=== PATIENT | male | born 1970 ===

== ENCOUNTER 2021-04-06 09:09 | Outpatient (REF) | payer SELFPAY ==
--- NOTE | ~2021-04-06 | XR_ITS ---
EXAMINATION: XR HIP, LEFT CLINICAL INFORMATION: Sacroiliitis COMPARISON: None TECHNIQUE: Two views of the left hip. FINDINGS: Bones and soft tissues are normal. No fracture. Alignment is anatomic. Hip joint space is maintained. XR/XR hip LT min 2V IMPRESSION: Normal left hip.
--- NOTE | ~2021-04-06 | XR_ITS ---
EXAMINATION: XR WRIST, LEFT CLINICAL INFORMATION: Pain COMPARISON: None TECHNIQUE: PA, lateral, and oblique views of the left wrist. FINDINGS: Bone alignment is normal. No fracture or dislocation is seen. There is ulnar minus variance. Joint spaces are normal. Soft tissues are normal. XR/XR wrist LT min 3V IMPRESSION: Ulnar minus variance otherwise unremarkable exam.
--- NOTE | ~2021-04-06 | XR_ITS ---
EXAMINATION: XR ELBOW, LEFT CLINICAL INFORMATION: Epicondylitis COMPARISON: None TECHNIQUE: AP, lateral, and oblique views of the left elbow. FINDINGS: Bone alignment is normal. No fracture or dislocation is seen. Joint spaces are normal. There is no joint effusion. There is a small osteophyte at the triceps tendon insertion to the olecranon. Soft tissues are otherwise normal. XR/XR elbow LT min 3V IMPRESSION: Small olecranon osteophyte otherwise unremarkable exam.
--- NOTE | ~2021-04-06 | XR_ITS ---
EXAMINATION: XR LUMBOSACRAL SPINE WITH OBLIQUES CLINICAL INFORMATION: Sacroiliitis COMPARISON: None TECHNIQUE: AP, both oblique, and lateral views of the lumbar spine. Lateral view of the lumbosacral junction. FINDINGS: There is a transitional vertebral body segment or 6 lumbar-type vertebral bodies. Bone alignment is normal. No fracture or dislocation is seen. Disc spaces are normal. Facet joints are normal. No pars defect is seen. Paraspinal soft tissues are normal XR/XR lumbar spine 4V min IMPRESSION: Unremarkable exam.
== END 2021-04-06 09:10 | disposition home or self-care (01) ==
LOC: HO.XRAY 09:09
PROVIDERS: PCP Family Medicine; Visit Provider Family Medicine
DX: M46.1 Sacroiliitis, not elsewhere classified (principal); M77.10 Lateral epicondylitis, unspecified elbow
CPT/HCPCS: 72110; 73080; 73110; 73502

== ENCOUNTER 2021-04-23 07:25 | Outpatient (REF) | payer OTHER, SELFPAY | END 2021-04-23 07:26 | disposition home or self-care (01) | LOC: HO.HOSX 07:25 | PROVIDERS: Visit Provider Physician Assistant | DX: Z13.89 Encounter for screening for other disorder (principal) ==

== ENCOUNTER 2023-02-17 09:55 | Outpatient (REF) | payer MEDICAID, SELFPAY ==
[2023-02-17 14:29] LABS: MANUAL DIFF FLAG NO
[2023-02-17 14:35] LABS: Basophils Percent Auto 0.8 % (0-2); Eosinophils Absolute Auto 0.1 X10*3/uL (0.0-0.4); Eosinophils Percent Auto 2.1 % (0-4); Hematocrit 43.9 % (42.0-52.0); Hemoglobin 14.7 g/dl (14.0-18.0); Imm Gran Abs Auto 0.01 X10*3/uL (0.00-0.03); Imm Gran Pct Auto 0.3 % (0.0-0.4); Lymphocytes Absolute Auto 1.5 X10*3/uL (1.2-4.9); Mean Corpuscular HGB Conc 33.5 g/dl (31.0-36.0); Mean Corpuscular Hemoglobin 29.2 pg (27.0-33.0); Mean Corpuscular Volume 87.3 fL (80.0-98.0); Mean Platelet Volume 12.2 fL (9.4-12.4); Monocytes Absolute Auto 0.4 X10*3/uL (0.1-1.2); Neutrophils Absolute Auto 1.9 x10*3/uL (2.0-8.3); Neutrophils Percent Auto 48.8 % (45-73); Platelet Count 200 X10*3/uL (160-400); Red Blood Count 5.03 X10*6/uL (4.60-5.80); Red Cell Distribution Width 12.6 % (11.0-16.0); White Blood Count 3.9 X10*3/uL (4.8-10.8)
[2023-02-17 15:01] LABS: Estimated Average Glucose 114 mg/dL; Hemoglobin A1c % 5.6 % (<6.0)
[2023-02-17 15:59] LABS: Alanine Aminotransferase 42 U/L (0-40); Anion Gap 9 (12-20); Aspartate Amino Transferase 30 U/L (5-37); Bilirubin Total 0.6 mg/dL (0.0-1.0); Blood Urea Nitrogen 15 mg/dL (9-16); Calcium 9.4 mg/dL (8.4-10.2); Carbon Dioxide 25 mmol/L (22-29); Chloride 109 mmol/L (96-108); Estimated Glomerular Filt Rate > 60; Glucose Fasting 123 mg/dL (60-99); Sodium 139 mmol/L (135-145)
[2023-02-17 16:00] LABS: Albumin Level 4.2 g/dL (3.5-5.0); Alkaline Phosphatase 81 U/L (39-117); Cholesterol 222 mg/dL (<200); HDL Cholesterol 43 mg/dL (>40); LDL Cholesterol Calculated 152 mg/dL (<100); Total Protein 7.7 g/dL (6.5-8.0); Triglycerides 138 mg/dL (<150)
[2023-02-17 16:19] LABS: TSH reflex Free T4 1.71 uIU/mL (0.32-4.0)
[2023-02-19 20:15] LABS: TS Negative Control Passed; TS Panel A 0; TS Panel B 0; TS Positive Control Passed; TSpotTB Negative (Negative)
== END 2023-02-17 09:56 | disposition home or self-care (01) ==
LOC: HO.CHCLDS 09:55
PROVIDERS: Visit Provider Family Medicine
DX: Z11.1 Encounter for screening for respiratory tuberculosis (principal); E66.09 Other obesity due to excess calories; Z68.36 Body mass index [BMI] 36.0-36.9, adult; R76.11 Nonspecific reaction to tuberculin skin test without active tuberculosis
CPT/HCPCS: 36415; 80053; 80061; 83036; 84443; 85025; 86481

== ENCOUNTER 2023-02-26 09:26 | Outpatient (REF) | payer MEDICAID, SELFPAY ==
[2023-02-26 14:58] LABS: Alanine Aminotransferase 62 U/L (0-40); Albumin Level 4.2 g/dL (3.5-5.0); Alkaline Phosphatase 75 U/L (39-117); Anion Gap 14 (12-20); Aspartate Amino Transferase 45 U/L (5-37); Bilirubin Total 0.8 mg/dL (0.0-1.0); Blood Urea Nitrogen 18 mg/dL (9-16); Calcium 9.2 mg/dL (8.4-10.2); Carbon Dioxide 23 mmol/L (22-29); Chloride 106 mmol/L (96-108); Estimated Glomerular Filt Rate > 60; Glucose Fasting 108 mg/dL (60-99); Sodium 139 mmol/L (135-145); Total Protein 7.6 g/dL (6.5-8.0)
== END 2023-02-26 09:27 | disposition home or self-care (01) ==
LOC: HO.CHCLDS 09:26
PROVIDERS: Visit Provider Family Medicine
DX: R74.01 Elevation of levels of liver transaminase levels (principal)
CPT/HCPCS: 36415; 80053

== ENCOUNTER 2023-03-12 11:21 | Outpatient (REF) | payer MEDICAID, SELFPAY ==
--- NOTE | ~2023-03-12 | US_ITS ---
EXAMINATION: US ABDOMEN LIMITED CLINICAL INFORMATION: Persistent transaminitis. COMPARISON: None available. TECHNIQUE: Real-time imaging of the right upper quadrant abdominal viscera. Limited visualization due to bowel gas. FINDINGS: PANCREAS: Poorly visualized. LIVER: Increased parenchymal heterogeneity and echogenicity which could be associated with hepatic steatosis or hepatocellular disease and substantially limits visualization. GALLBLADDER: No gallstones. No gallbladder wall thickening. COMMON BILE DUCT: Normal in caliber measuring 0.53 cm in diameter. RIGHT KIDNEY: No hydronephrosis. No renal calculi. Renal cortical thickness is normal. Limited visualization. The kidney measures 13.2 cm in maximum dimension. FREE FLUID: None. US/US abdomen limited IMPRESSION: Increased parenchymal heterogeneity and echogenicity which could be associated with hepatic steatosis or hepatocellular disease and substantially limits visualization.
== END 2023-03-12 11:22 | disposition home or self-care (01) ==
LOC: HO.HMGCX 11:21
PROVIDERS: PCP Family Medicine; Visit Provider Family Medicine
DX: R74.01 Elevation of levels of liver transaminase levels (principal)
CPT/HCPCS: 76705

== ENCOUNTER 2023-11-16 10:50 | Inpatient (IN) | payer MEDICAID, SELFPAY ==
--- NOTE | ~2023-11-16 | XR_ITS ---
EXAMINATION: XR HAND, RIGHT CLINICAL INFORMATION: Thumb injury with swelling. COMPARISON: None available. TECHNIQUE: PA, lateral, and oblique views of the right hand. FINDINGS: Bones have normal alignment within the hand and wrist. An arrow placed on the PA view of the hand indicates that the injury was at the interphalangeal joint of the thumb. Soft tissues are swollen at the interphalangeal joint of the thumb. Joint spaces of the thumb are maintained. No radiopaque foreign body or soft tissue gas. A very small lucency in cortical bone of the 1st metacarpal head could represent an old subchondral cyst or perhaps sequela of prior trauma. There is no indication on the views obtained that any injury occurred in this specific area of the thumb. Also, there is no radiographic evidence of a soft tissue laceration. Mild narrowing of joint space and small osteophytes at multiple interphalangeal joints of the 2nd - 5th digits (i.e., mild osteoarthrosis). XR/XR hand RT min 3V IMPRESSION: * Soft tissues are swollen adjacent to the interphalangeal joint of the thumb. However, no acute fracture or malalignment in this location. No radiopaque foreign body. 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
--- NOTE | 2023-11-16 11:23 | ED_ITS ---
HPI - Extremity Problem General Chief complaint: Extremity Injury, Upper Stated complaint: thumb inj at work Time Seen by Provider: 11/16/23 12:50 History of Present Illness ED Provider: Vladislav Moreira PA-C HPI Narrative: 53 yold male with pmh of HTN presents to the ED for right thumb pain and swelling. patient cut his finger at work on a grinder outside diameter on then last night started notice some redness and pain in his morning has swelling and redness of the thumb with decreased ability to flex or extend the thumb. Patient states no fever or chills. Related Data Home Medications ?Medication ?Instructions ?Recorded ?Confirmed diclofenac potassium 50 mg tablet 50 mg TID 11/16/23 11/16/23 gabapentin 600 mg tablet 600 mg BEDTIME 11/16/23 11/16/23 losartan 50 mg tablet 50 mg DAILY 11/16/23 11/16/23 rosuvastatin 20 mg tablet 20 mg DAILY 11/16/23 11/16/23 Allergies Allergy/AdvReac Type Severity Reaction Status Date / Time No Known Allergies Allergy Verified 11/16/23 11:25 Review of Systems 2 Review of Systems: right thumb pain redness and swelling Yes all other systems are reviewed and are negative PMFSH Social History Social History Household Members: Family Housing: House Do you presently have visiting nurse or other home services: No Patient Tobacco Use Status: Never used Tobacco Use of substances other than those prescribed or required for medical reasons: No Have you been hit, kicked, punched, or otherwise hurt by someone within the past year? If so, by whom?: No Do you feel safe in your current relationship?: Yes Is there a partner from a previous relationship who is making you feel unsafe now?: No Are you made to feel afraid or neglected: No Advance Directives: No Advance Directives Information Provided: No Do you have a plan to hurt others: No Plan Recently lost weight without trying: No How much weight loss: Not applicable Eating poorly because of decreased appetite: No Nutrition screen score: 0 Nutrition Risks: No Nutritional Risk Poor oral hygiene: No Physical Exam 2 Vital Signs: Vital Signs: Last Vital Signs Temp 97.7 F 11/16/23 21:51 Pulse 95 11/16/23 21:51 Resp 18 11/16/23 21:51 BP 152/72 H 11/16/23 21:51 Pulse Ox 97 11/16/23 21:51 O2 Del Method Room Air 11/16/23 21:51 BMI result Body Mass Index 37.2 Const: General: cooperative, healthy appearing, comfortable, no acute distress, well developed, alert, awake and Physically active O rientation/consciousness: oriented to person, oriented to place, oriented to time and patient oriented x3 HEENT: Head: Yes normal to inspection, Yes No palpable skull fracture present and Yes normocephalic Eyes: General: appearance normal, both eyes and all related structures Neck: Neck: Yes normal visual inspection, Yes full ROM, Yes no lymphadenopathy, Yes no meningeal signs, Yes trachea midline, Yes supple, No anterior neck swelling and No tender Chest: Chest palpation & inspection: normal inspection of the chest and normal palpation of entire chest wall Resp: Effort & Inspection: normal respiratory effort and able to speak in complete sentences Auscultation: clear to auscultation bilaterally Cardio: Jugular venous distension: no JVD Heart sounds: S1 normal heart sound present and S2 normal heart sound present GI: Inspection: Yes normal to inspection Palpation (GI): Soft to palpation, not firm, nontender, no guarding and not rigid : General: No CVA tenderness and Yes no CVA tenderness Back/Spine/Pelvis: Back: no CVA tenderness, No CVA tenderness and No back tenderness Skin: Other: infected finger General skin exam: no rashes or lesions noted and elasticity normal Neuro: General: oriented to person, oriented to place, oriented to time, patient oriented x3, gait normal, tone normal, moves all extremities, Normal light touch and pain sensation, no meningeal signs, no focal motor deficits, CN's II-XI intact bilaterally and normal sensation to monofilament Extrem: Other: Right thumb dorsal and volar swelling and tenderness with erythema. Decreased flexion and extension due to pain. THumb is beefy red. Capillary refills intact. Bedside ultrasound was done on dorsal aspect of thumb where there is swelling and negative for pus collection. Rest of extremity normal. 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 Cut right thumb with a grinder outside diameter at work on Thursday. Increased swelling, erythema, pain and decreased ROM since, 03/10 pain. Has been using 'a lot of tylenol' for pain. Yellow purulent drainage noted Plan: XRay Medications Administered Generic Name Dose Route Start Last Admin Trade Name Freq PRN Reason Stop Dose Admin Acetaminophen 650 mg 11/16/23 18:13 11/16/23 21:58 Acetaminophen 325 Mg Tablet PO 650 mg Q6H PRN Administration Pain, Mild (Pain Scale 1-3), fever or headache Ibuprofen 600 mg 11/16/23 20:18 11/16/23 20:28 Ibuprofen 600 Mg Tablet PO 600 mg Q8H PRN Administration Pain, Moderate(Pain Scale 4-6) Discontinued Medications Generic Name Dose Route Start Last Admin Trade Name Freq PRN Reason Stop Dose Admin Diphtheria/Tetanus/Acell Pertussis 0.5 ml 11/16/23 13:13 11/16/23 13:23 Diphth,Pertus(Acell),Tet Adult 0.5 Ml Syringe IM 11/16/23 13:14 0.5 ml .ONCE ONE Administration Ceftriaxone Sodium 1 gm/ 50 mls @ 100 mls/hr 11/16/23 14:23 11/16/23 15:34 Sodium Chloride IV 11/16/23 14:52 Infused ONCE ONE Infusion Vancomycin HCl 2,000 mg in 500 mls @ 250 mls/hr 11/16/23 14:23 11/16/23 17:59 Vancomycin/Ns IV 11/16/23 16:22 Infused ONCE ONE Infusion Ibuprofen 800 mg 11/16/23 13:13 11/16/23 13:23 Ibuprofen 800 Mg Tablet PO 11/16/23 13:14 800 mg ONCE ONE Administration Morphine Sulfate 4 mg 11/16/23 15:41 11/16/23 15:48 Morphine Sulfate 4 Mg/Ml Cartridge IVPUSH 11/16/23 15:42 4 mg ONCE ONE Administration Protocol Medical Decision Making Medical Decision Making MDM Narrative: 53-year-old male with infected finger after trauma at work. Patient unknown when last tetanus shot. Tdap Motrin ordered. Physical exam maybe concerning for tenosynovitis will do labs per x-ray negative osteo. ESR CRP ordered. Antibiotics ordered. We will contact Orthopedic. bedside ultrasound of dorsal aspect thumb that is swollen negative for obvious pus collection. 4:23pm: negative white blood cell count elevation. Negative ESR. Positive elevated CRP. Patient's thumb is beefy red. Case discussed with orthopedic surgeon on-call Dr. Manzo. history, physical exam, diagnostics, will discuss with orthopedic surgeon and he was sent pictures of finger. He states patient can be admitted on the hospitalist service and Dr. Persaud can evaluate the patient in the morning to see if patient does need surgery and evaluate possible tenosynovitis. he states Dr. Persaud will confirm if patient has tenosynovitis in the morning. He recommends patient continue receiving ceftriaxone. He recommends patient stay NPO in case hand surgeon Dr. Persaud will take patient to the OR. Case discussed with Dr. Allen hospitalist who is agreeable with plan. Patient is agreeable to stay overnight for admission observation and received IV antibiotics and for evaluation in the morning by hand Differential Diagnosis Differential Diagnoses: The differential diagnosis associated with the presentation includes ( Tenosynovitis, cellulitis, abscess) Admission/Observation Consideration of admission/observation: Escalation of care including admission/observation considered Consult Healthcare Provider Management of the patient was discussed with: Hospitalist (Dr. Allen) and Pipeline Dispatch Operator (Dr. Manzo Orthopedic Surgeon) Lab Data MDM Lab Attestation statement: I reviewed the patient's lab results. 11/16/23 14:34 11/16/23 14:34 Labs: Lab Results 11/16/23 Range/Units 14:34 WBC 7.9 (4.8-10.8) X10*3/uL RBC 4.97 (4.60-5.80) X10*6/uL Hgb 14.5 (14.0-18.0) g/dl Hct 43.6 (42.0-52.0) % MCV 87.7 (80.0-98.0) fL MCH 29.2 (27.0-33.0) pg MCHC 33.3 (31.0-36.0) g/dl RDW 12.8 (11.0-16.0) % Plt Count 175 (160-400) X10*3/uL MPV 11.9 (9.4-12.4) fL Immature Gran % (Auto) 0.3 (0.0-0.4) % Neut % (Auto) 74.5 H (45-73) % Lymph % (Auto) 16.0 L (20-40) % Dubois % (Auto) 8.3 (2-11) % Eos % (Auto) 0.6 (0-4) % Baso % (Auto) 0.3 (0-2) % Lymph # (Auto) 1.3 (1.2-4.9) X10*3/uL Dubois # (Auto) 0.7 (0.1-1.2) X10*3/uL Eos # (Auto) 0.1 (0.0-0.4) X10*3/uL Baso # (Auto) 0.0 (0.0-0.2) X10*3/uL Abs Immat Gran (auto) 0.02 (0.00-0.03) X10*3/uL Absolute Neuts (auto) 5.9 (2.0-8.3) x10*3/uL Absolute Nucleated RBC 0.000 (0.0-0.012) X10*3/uL Nucleated RBC % (auto) 0.0 (0.0-0.2) /100WBC ESR 6 (0-15) MM/HR Sodium 141 (135-145) mmol/L Potassium 4.5 (3.3-5.1) mmol/L Chloride 108 (96-108) mmol/L Carbon Dioxide 28 (22-29) mmol/L Anion Gap 10 L (12-20) BUN 7 L (9-16) mg/dL Creatinine 1.02 (0.5-1.4) mg/dL Estim Creat Clear Calc 102.4 Estimated GFR > 60 Random Glucose 103 (60-115) mg/dL Lactic Acid 1.2 (0.5-2.0) mmol/L Calcium 9.4 (8.4-10.2) mg/dL Total Bilirubin 0.8 (0.0-1.0) mg/dL AST 27 (5-37) U/L ALT 38 (0-40) U/L Alkaline Phosphatase 88 (39-117) U/L C-Reactive Protein 1.85 H (< or = 0.50) mg/dL Total Protein 7.9 (6.5-8.0) g/dL Albumin 4.4 (3.5-5.0) g/dL Independent Interpretation I performed an independent interpretation of an: Plain X-Ray Radiology Impression Discussion of test interpretation with radiology: I have reviewed the radiologist's reading. Independent Historian Clinical information obtained from an independent historian. History obtained from or confirmed by: Other (Patient) External Record Review External record reviewed: Other (Prior vists) Critical Care Time Critical Care Time Critical Care Time: Yes Total Critical Care Time: 60 Attestation: tenosynovitis of thumb. Contact orthopedic surgeon and hospitaltists. antiboitcs ordered. admitted Discharge Plan Discharge Clinical Impression: Tenosynovitis of thumb Patient Disposition: Admitted As Inpatient Interventions: Admission Worksheet (ED) Last Done: 11/16/23 20:44 Discharge Date/Time: 11/16/23 21:42
[2023-11-16 11:24] VITALS: BP 142/71; PULSE 65; RESP 16; TEMP 36.6; O2SAT 98; BMI 37.2
[2023-11-16] MEDS: Diphth,Pertus(ACell),Tet Adult 0.5 ML SYRINGE IM (13:23)
[2023-11-16] MEDS: Ibuprofen 800 MG TABLET PO (13:23)
[2023-11-16 13:59] VITALS: BP 150/86; PULSE 62; RESP 18; TEMP 36.6; O2SAT 100
[2023-11-16 14:42] LABS: MANUAL DIFF FLAG NO
[2023-11-16 14:43] LABS: Basophils Percent Auto 0.3 % (0-2); Eosinophils Absolute Auto 0.1 X10*3/uL (0.0-0.4); Eosinophils Percent Auto 0.6 % (0-4); Hematocrit 43.6 % (42.0-52.0); Hemoglobin 14.5 g/dl (14.0-18.0); Imm Gran Abs Auto 0.02 X10*3/uL (0.00-0.03); Imm Gran Pct Auto 0.3 % (0.0-0.4); Lymphocytes Absolute Auto 1.3 X10*3/uL (1.2-4.9); Mean Corpuscular HGB Conc 33.3 g/dl (31.0-36.0); Mean Corpuscular Hemoglobin 29.2 pg (27.0-33.0); Mean Corpuscular Volume 87.7 fL (80.0-98.0); Mean Platelet Volume 11.9 fL (9.4-12.4); Monocytes Absolute Auto 0.7 X10*3/uL (0.1-1.2); Monocytes Percent Auto 8.3 % (2-11); Neutrophils Absolute Auto 5.9 x10*3/uL (2.0-8.3); Neutrophils Percent Auto 74.5 % (45-73); Platelet Count 175 X10*3/uL (160-400); Red Blood Count 4.97 X10*6/uL (4.60-5.80); Red Cell Distribution Width 12.8 % (11.0-16.0); White Blood Count 7.9 X10*3/uL (4.8-10.8)
[2023-11-16 14:58] LABS: Lactic Acid 1.2 mmol/L (0.5-2.0)
[2023-11-16 15:02] LABS: Alanine Aminotransferase 38 U/L (0-40); Albumin Level 4.4 g/dL (3.5-5.0); Alkaline Phosphatase 88 U/L (39-117); Anion Gap 10 (12-20); Aspartate Amino Transferase 27 U/L (5-37); Bilirubin Total 0.8 mg/dL (0.0-1.0); Blood Urea Nitrogen 7 mg/dL (9-16); C Reactive Protein 1.85 mg/dL (< or = 0.50); Calcium 9.4 mg/dL (8.4-10.2); Carbon Dioxide 28 mmol/L (22-29); Chloride 108 mmol/L (96-108); Creatinine Clr Calc Pharmacy 102.4; Estimated Glomerular Filt Rate > 60; Glucose Random 103 mg/dL (60-115); Potassium 4.5 mmol/L (3.3-5.1); Sodium 141 mmol/L (135-145); Total Protein 7.9 g/dL (6.5-8.0)
[2023-11-16] MEDS: cefTRIAXone sodium 1 GM in 0.9 % Sodium Chloride 50 ML IV (15:02)
[2023-11-16] MEDS: vancomycin/NS 2,000 MG/500 ML PLAST..BAG 250 MG IV (15:34)
[2023-11-16 15:38] LABS: Erythrocyte Sedimentation Rate 6 MM/HR (0-15)
[2023-11-16] MEDS: Morphine Sulfate 4 MG/ML CARTRIDGE IVPUSH (15:48)
[2023-11-16 16:54] VITALS: BP 146/78; PULSE 64; RESP 18; TEMP 36.7; O2SAT 99
--- NOTE | 2023-11-16 17:46 | PM.IMHP ---
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 He had been covering the wound until this morning when he noticed increased swelling, redness, and reduced mobility in the thumb. He has no fever, and his WBC count is normal. In the ED, he received Vancomycin and Ceftriaxone. An X-ray shows soft tissue swelling but no fracture. Below is a picture of the affected area. Review of Systems Constitutional: Comments: no fever pain in the right thumb all other organs reviewed negative PMFSH Social History Advance Directives: No Advance Directives Information Provided: No Meds Allergies Allergy/AdvReac Type Severity Reaction Status Date / Time No Known Allergies Allergy Verified 11/16/23 11:25 Physical Exam Vital Signs and Narrative: Vital Signs: Last Vital Signs Temp 98.1 F 11/16/23 16:54 Pulse 64 11/16/23 16:54 Resp 18 11/16/23 16:54 BP 146/78 H 11/16/23 16:54 Pulse Ox 99 11/16/23 16:54 O2 Del Method Room Air 11/16/23 16:54 BMI result Body Mass Index 37.2 General: AO X 3, no acute distress Resp: CTA bilateral CVS: S1,S2,RRR GI: +BS, NT, no distention Skin: redness, swelling as shown, limited mobility possibly from pain Neuro: motor grossly intact Psych: appropriate affect Results Labs 11/16/23 14:34 11/16/23 14:34 Labs: Laboratory Results - last 24 hr 11/16/23 14:34 MCV 87.7 MCH 29.2 MCHC 33.3 RDW 12.8 Plt Count 175 MPV 11.9 Immature Gran % (Auto) 0.3 Neut % (Auto) 74.5 H Lymph % (Auto) 16.0 L Waller % (Auto) 8.3 Eos % (Auto) 0.6 Baso % (Auto) 0.3 Lymph # (Auto) 1.3 Waller # (Auto) 0.7 Eos # (Auto) 0.1 Baso # (Auto) 0.0 Abs Immat Gran (auto) 0.02 Absolute Neuts (auto) 5.9 Absolute Nucleated RBC 0.000 Nucleated RBC % (auto) 0.0 ESR 6 Anion Gap 10 L Estim Creat Clear Calc 102.4 Estimated GFR > 60 Random Glucose 103 Lactic Acid 1.2 Calcium 9.4 Total Bilirubin 0.8 AST 27 ALT 38 Alkaline Phosphatase 88 C-Reactive Protein 1.85 H Total Protein 7.9 Albumin 4.4 Imaging Radiologist's Impressions: Impressions Hand X-Ray 11/16/23 11:44 IMPRESSION: * Soft tissues are swollen adjacent to the interphalangeal joint of the thumb. However, no acute fracture or malalignment in this location. No radiopaque foreign body. 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 Assessment and Plan (1) Tenosynovitis of thumb: Status: Acute Plan 53/m m with HTN, HLD here with Right tumb injury, redness, swelling..concern for tenosynovitis -IV vancomycin -Hand surgery consult -morphine for pain HTN--resume home meds (losartan) once med rec completed HLD--statin DVT prophylaxis--low risk, ambulate inatient for IV Abx for cellulitis of thumb, tenosynovitis, risk for loss digit Quality Stroke Does the patient have a stroke diagnosis?: No VTE Prior VTE?: No VTE Risk Level:: Medical - low VTE Device Contraindication: Treatment Not Indicated VTE Drug Contraindication: Treatment Not Indicated
--- NOTE | 2023-11-16 18:31 | PHA.MEDREC ---
Pharmacy Consult ? Medication Reconciliation Pharmacy has completed the medication reconciliation.
--- NOTE | 2023-11-16 18:45 | PHA.PROG ---
Admission Date/Time: November 16, 2023 18:13 Indication: Skin & skin structure Weight in k.13 kg Adjusted body weight in Kg: [place] body weight in Kg: Obesity Dosing Indication % IBW: BMI 37.3 Serum Creatinine - Last 168 Hours 11/16/23 14:34 Creatinine 1.02 Estimated CrCl and GFR - Last 168 Hours 11/16/23 14:34 Estim Creat Clear Calc 102.4 Estimated GFR > 60 Vancomycin Loading Dose: 2000 X1 Current Vancomycin Dosing Regimen: 750 mg Q8H Vancomycin Monitoring using AUC goal of 400 - 600 range with trough as surrogate marker: 457 Date and Time for next Vancomycin Level to be drawn: 11/16 @1400 Pharmacist Comments on Vancomycin Plan: renal function stable, predicted trough 16, next trough 11/16. Vancomycin dosing will take advantage of [employer] as a clinical decision support tool that uses Bayesian modeling to calculate individual patient's pharmacokinetic parameters and forecast the patient's drug concentration time course with the target goal AUC 24 range of 400 - 600 mg/L/hr.
--- NOTE | 2023-11-16 19:12 | MHC.EDTECH ---
patient does not want to change to hospital clothes.
[2023-11-16] MEDS: Ibuprofen 600 MG TABLET PO (20:28)
--- NOTE | 2023-11-16 20:30 | PC.NURSE ---
Pt specifically requesting Motrin for pain. Provider made aware, Pt medicated per JUL.
[2023-11-16 21:51] VITALS: BP 152/72; PULSE 95; RESP 18; TEMP 36.5; O2SAT 97
[2023-11-16] MEDS: Acetaminophen 325 MG TABLET 650 MG PO (21:58)
[2023-11-16] MEDS: 0.9 % Sodium Chloride Flush 3 ML SYRINGE IVFLUSH (23:37)
[2023-11-16] MEDS: vancomycin HCL 750 MG in 0.9 % Sodium Chloride 250 ML 265 MG IV (23:37)
[2023-11-17 03:52] VITALS: BP 137/63; PULSE 68; RESP 18; TEMP 36.4; O2SAT 96
[2023-11-17 06:30] LABS: Creatinine Clr Calc Pharmacy 103.4; Estimated Glomerular Filt Rate > 60
[2023-11-17] MEDS: vancomycin HCL 750 MG in 0.9 % Sodium Chloride 250 ML 265 MG IV (07:11)
[2023-11-17] MEDS: 0.9 % Sodium Chloride Flush 3 ML SYRINGE IVFLUSH ×3 (07:11→23:21)
[2023-11-17 07:37] VITALS: BP 142/68; PULSE 63; RESP 16; TEMP 36.6; O2SAT 97
--- NOTE | 2023-11-17 07:42 | P.CONOP_ITS ---
History of Present Illness HPI Consult date: 11/17/23 Chief complaint: cellulitis of hand Narrative: 53 yo male admitted to medicine for right thumb pain and swelling. 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 He states this happened last , 11/12/23. He states the pain and redness worsened which prompted him to come to the ED for eval. On admission he was started on IV abx. He states the symptoms have improved a bit since starting abx. Review of Systems 2 Review of Systems: Yes all other systems are reviewed and are negative [facility] Social History Social History Household Members: Family Housing: House Do you presently have visiting nurse or other home services: No Patient Tobacco Use Status: Never used Tobacco Use of substances other than those prescribed or required for medical reasons: No Currently Displaying Signs/Symptoms of Drug Intoxication Withdrawal: No Have you been hit, kicked, punched, or otherwise hurt by someone within the past year? If so, by whom?: No Do you feel safe in your current relationship?: Yes Is there a partner from a previous relationship who is making you feel unsafe now?: No Are you made to feel afraid or neglected: No Advance Directives: No Advance Directives Information Provided: No Do you have a plan to hurt others: No Plan Recently lost weight without trying: No How much weight loss: Not applicable Eating poorly because of decreased appetite: No Nutrition screen score: 0 Nutrition Risks: No Nutritional Risk Poor oral hygiene: No Meds Allergies Allergy/AdvReac Type Severity Reaction Status Date / Time No Known Allergies Allergy Verified 11/16/23 11:25 Active Medications: Current Medications Acetaminophen (Acetaminophen 325 Mg Tablet) 650 mg PO Q6H PRN PRN Reason: Pain, Mild (Pain Scale 1-3), fever or headache Last Admin: 11/16/23 21:58 Dose: 650 mg Calcium Carbonate (Calcium Carbonate 750 Mg Tab.Chew) 750 mg PO Q4H PRN PRN Reason: Heartburn Vancomycin HCl 750 mg/ Sodium (Chloride) 265 mls @ 265 mls/hr IV Q8H MYRA Last Admin: 11/17/23 07:11 Dose: 265 mls/hr Ibuprofen (Ibuprofen 600 Mg Tablet) 600 mg PO Q8H PRN PRN Reason: Pain, Moderate(Pain Scale 4-6) Last Admin: 11/16/23 20:28 Dose: 600 mg Magnesium Hydroxide (Milk Of Magnesia 30 Ml Oral.Susp) 30 ml PO DAILY PRN PRN Reason: Constipation Melatonin (Melatonin 3 Mg Tablet) 6 mg PO BEDTIME PRN PRN Reason: Insomnia Morphine Sulfate (Morphine Sulfate 4 Mg/Ml Cartridge) 2 mg IVPUSH Q6H PRN; Protocol PRN Reason: Pain, Severe (Pain Scale 7-10) Pharmacy Consult (Consult Rx Vancomycin Dosing) 1 each MISCELLANE DAILY PRN PRN Reason: Consult order Sodium Chloride (0.9 % Sodium Chloride Flush 3 Ml Syringe) 3 ml IVFLUSH QSHIFT [facility] Last Admin: 11/17/23 07:11 Dose: 3 ml Home Medications ?Medication ?Instructions ?Recorded ?Confirmed ?Last Taken ?Type diclofenac potassium 50 mg tablet 50 mg TID 11/16/23 11/16/23 11/16/23 History gabapentin 600 mg tablet 600 mg BEDTIME 11/16/23 11/16/23 11/16/23 History losartan 50 mg tablet 50 mg DAILY 11/16/23 11/16/23 11/16/23 History rosuvastatin 20 mg tablet 20 mg DAILY 11/16/23 11/16/23 11/16/23 History Physical Exam 2 Vital Signs: Vital Signs: Last Vital Signs Temp 97.9 F 11/17/23 07:37 Pulse 63 11/17/23 07:37 Resp 16 11/17/23 07:37 BP 142/68 H 11/17/23 07:37 Pulse Ox 97 11/17/23 07:37 O2 Del Method Room Air 11/17/23 07:37 BMI result Body Mass Index 37.2 Const: General: cooperative, healthy appearing and comfortable Extrem: Other: Right thumb redness and swelling over the IP joint with scant serous drainage. No pain over the MCP No pain along the thenar eminence No pain or swelling within the palmar aspect of the hand or web spaces No pain along the flexor tendons Results Labs 11/16/23 14:34 11/17/23 05:30 Labs: Abnormal lab results 11/16/23 Range/Units 14:34 Neut % (Auto) 74.5 H (45-73) % Lymph % (Auto) 16.0 L (20-40) % Anion Gap 10 L (12-20) BUN 7 L (9-16) mg/dL C-Reactive Protein 1.85 H (< or = 0.50) mg/dL H & H 11/16/23 Range/Units 14:34 Hgb 14.5 (14.0-18.0) g/dl Hct 43.6 (42.0-52.0) % All other labs normal. Assessment and Plan (1) Infected abrasion of right thumb: Status: Acute Plan IV abx warm soaks with water and peroxide qid ROM Elevate No surgical intervention at this time Procedures Date of Service Date of Service: 11/17/23
--- NOTE | 2023-11-17 10:16 | P.PNIM_ITS ---
Subjective Subjective Date of Service: 11/17/23 Interval History: f/u on cellulitis of right thumb interval history: redness and movement in the right thumb is better Physical Exam 2 Vital Signs: Vital Signs: Last Vital Signs Temp 97.9 F 11/17/23 07:37 Pulse 63 11/17/23 07:37 Resp 16 11/17/23 07:37 BP 142/68 H 11/17/23 07:37 Pulse Ox 97 11/17/23 07:37 O2 Del Method Room Air 11/17/23 07:37 BMI result Body Mass Index 37.2 General: AO X 3, no acute distress Resp: CTA bilateral CVS: S1,S2,RRR GI: +BS, NT, no distention Skin: 11/16 Neuro: motor grossly intact Psych: appropriate affect Objective Data Active Medications Acetaminophen (Acetaminophen 325 Mg Tablet) 650 mg PO Q6H PRN PRN Reason: Pain, Mild (Pain Scale 1-3), fever or headache Last Admin: 11/16/23 21:58 Dose: 650 mg Documented By: LINDA Calcium Carbonate (Calcium Carbonate 750 Mg Tab.Chew) 750 mg PO Q4H PRN PRN Reason: Heartburn Vancomycin HCl 750 mg/ Sodium (Chloride) 265 mls @ 265 mls/hr IV Q8H [facility] Last Infusion: 11/17/23 08:11 Dose: Infused Documented By: GARY Ibuprofen (Ibuprofen 600 Mg Tablet) 600 mg PO Q8H PRN PRN Reason: Pain, Moderate(Pain Scale 4-6) Last Admin: 11/16/23 20:28 Dose: 600 mg Documented By: USHA Magnesium Hydroxide (Milk Of Magnesia 30 Ml Oral.Susp) 30 ml PO DAILY PRN PRN Reason: Constipation Melatonin (Melatonin 3 Mg Tablet) 6 mg PO BEDTIME PRN PRN Reason: Insomnia Morphine Sulfate (Morphine Sulfate 4 Mg/Ml Cartridge) 2 mg IVPUSH Q6H PRN; Protocol PRN Reason: Pain, Severe (Pain Scale 7-10) Pharmacy Consult (Consult Rx Vancomycin Dosing) 1 each MISCELLANE DAILY PRN PRN Reason: Consult order Sodium Chloride (0.9 % Sodium Chloride Flush 3 Ml Syringe) 3 ml IVFLUSH [facility] Last Admin: 11/17/23 07:11 Dose: 3 ml Documented By: GARY Labs 11/16/23 14:34 11/17/23 05:30 Labs: Laboratory Results - last 24 hr 11/16/23 11/17/23 14:34 05:30 MCV 87.7 MCH 29.2 MCHC 33.3 RDW 12.8 Plt Count 175 MPV 11.9 Immature Gran % (Auto) 0.3 Neut % (Auto) 74.5 H Lymph % (Auto) 16.0 L [place] % (Auto) 8.3 Eos % (Auto) 0.6 Baso % (Auto) 0.3 Lymph # (Auto) 1.3 [place] # (Auto) 0.7 Eos # (Auto) 0.1 Baso # (Auto) 0.0 Abs Immat Gran (auto) 0.02 Absolute Neuts (auto) 5.9 Absolute Nucleated RBC 0.000 Nucleated RBC % (auto) 0.0 ESR 6 Hold Purple Top SEE NOTE Anion Gap 10 L Estim Creat Clear Calc 102.4 103.4 Estimated GFR > 60 > 60 Random Glucose 103 Lactic Acid 1.2 Calcium 9.4 Total Bilirubin 0.8 AST 27 ALT 38 Alkaline Phosphatase 88 C-Reactive Protein 1.85 H Total Protein 7.9 Albumin 4.4 Assessment and Plan (1) Infected abrasion of right thumb: Status: Acute (2) Tenosynovitis of thumb: Status: Acute Plan 53/m m with HTN, HLD here with Right tumb injury, redness, swelling..concern for tenosynovitis -IV vancomycin -morphine for pain -Ortho recom IV Abx, warm soak w/ peroxide qid HTN--resume home meds (losartan) once med rec completed HLD--statin DVT prophylaxis--low risk, ambulate inatient for IV Abx for cellulitis of thumb, tenosynovitis, risk for loss digit Quality Stroke Does the patient have a stroke diagnosis?: No VTE Prior VTE?: No VTE Risk Level:: Medical - low VTE Device Contraindication: Treatment Not Indicated VTE Drug Contraindication: Treatment Not Indicated
--- NOTE | 2023-11-17 10:55 | MHC.CM.PN ---
CM MET WITH PT AT BEDSIDE. PT LIVES WITH SPOUSE, IS INDEPENDENT AND SELF EMPLOYED. +HCP PCP DR. KASPER DP: HOME , NO SERVICES ANTICIPATED. PT HAS CARE IN LOT. CM WILL CONTINUE TO FOLLOW FOR ANY CHANGE TO DC PLAN/NEEDS.
[2023-11-17] MEDS: Losartan Potassium 50 MG TABLET PO (11:43)
[2023-11-17 14:39] LABS: Vancomycin Random 8.1 mcg/mL (15-20)
[2023-11-17] MEDS: Lidocaine HCl 1 % 20 ML VIAL SUBCUT (15:18)
[2023-11-17 15:44] VITALS: BP 145/72; PULSE 91; RESP 18; TEMP 36.3; O2SAT 97
[2023-11-17] MEDS: vancomycin HCL 1,250 MG in 0.9 % Sodium Chloride 250 ML 166.67 MG IV ×2 (15:44→23:20)
[2023-11-17] MEDS: Ibuprofen 600 MG TABLET PO (15:46)
[2023-11-17 19:06] VITALS: BP 133/62; PULSE 73; RESP 18; TEMP 36.2; O2SAT 96
[2023-11-17] MEDS: Gabapentin 600 MG TABLET PO (21:18)
[2023-11-18 03:30] VITALS: BP 133/68; PULSE 67; RESP 16; TEMP 36.3; O2SAT 95
[2023-11-18 06:42] LABS: Creatinine Clr Calc Pharmacy 120.1; Estimated Glomerular Filt Rate > 60
[2023-11-18 07:03] VITALS: BP 128/61; PULSE 68; RESP 14; TEMP 36.2; O2SAT 96
[2023-11-18] MEDS: Losartan Potassium 50 MG TABLET PO (07:10)
[2023-11-18] MEDS: vancomycin HCL 1,250 MG in 0.9 % Sodium Chloride 250 ML 166.66 MG IV (07:11)
[2023-11-18] MEDS: 0.9 % Sodium Chloride Flush 3 ML SYRINGE IVFLUSH ×2 (07:14→15:48)
--- NOTE | 2023-11-18 07:26 | PM.DS ---
DS: Providers Provider Date of Service: 11/19/23 Date of admission: 11/16/23 18:13 Primary care physician: Aparna Motley MD Consults: 11/16/23 18:15 Consult to Orthopedics Routine Consulting Provider: [facility] Reason for consultation: hand injury and cellulitis 11/16/23 21:51 Consult to Wound Care Routine Reason for consultation: cellulitis to right thumb DS: Diagnosis Discharge Diagnosis (1) Infected abrasion of right thumb: Status: Acute (2) Tenosynovitis of thumb: Status: Acute DS: Summary Hospital Course Hospital Course: admission hpi Chief Complaint: Thumb injury and cellulitis A 53-year-old male with hypertension and hyperlipidemia presented with redness and swelling of his right thumb 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 He had been covering the wound until this morning when he noticed increased swelling, redness, and reduced mobility in the thumb. He has no fever, and his WBC count is normal. In the ED, he received Vancomycin and Ceftriaxone. An X-ray shows soft tissue swelling but no fracture. Below is a picture of the affected area. hosptial course: Patient was admitted for right thumb injury complicated cellulitis and tenosynovitis and was admitted for IV Abx and has signficantly improved. He was assesed by ortho with no inidcation for surgery. The erythema has nearly resolved and he has nearly intact movment in the thumb. He is advised to soak in warm water with peroxide up to 4 times a day. Will transition to oral Doxycyline at discharge and to follow up with ortho on outpatient basis Time Attestation Discharge Coordination Time (in mins): 35 Quality: Safe Use of Opioids Does Pt have an Active Cancer Diagnosis on the Problem List?: No Quality: Stroke Does the patient have a stroke diagnosis?: No Physical Exam Vital Signs: Vital Signs: Selected Entries 11/19/23 07:42 Temperature 97.5 F Pulse Rate 68 Respiratory Rate 12 Blood Pressure 123/72 Pulse Oximetry 97 Oxygen Delivery Me thod Room Air DS: Data Data Completed and Pending Labs on day of discharge: Laboratory Results - last 24 hr 11/17/23 11/18/23 13:53 06:03 Creatinine 0.87 Estim Creat Clear Calc 120.1 Estimated GFR > 60 Random Vancomycin 8.1 L Preliminary micro results at discharge 11/16/23 14:47 Blood Culture - Preliminary Blood - Venous No growth after 24 hours. 11/16/23 14:34 Blood Culture - Preliminary Blood - Venous No growth after 24 hours. Discharge Plan Discharge Anticipated Discharge Date/Time: 11/19/23 10:30 Patient Disposition: Home, Self-Care Discharge Diagnosis: Cellulitis of the thumb Referrals: Elvira Siu PA-C [Physician Bilingual Sales Assistant] - 1 Week Aparna Motley MD [Primary Care Provider] - 1 Week Discharge Medications: New doxycycline hyclate 100 mg tablet 100 mg PO BID 5 Days Qty: 10 0RF Continued losartan 50 mg tablet 50 mg DAILY gabapentin 600 mg tablet 600 mg BEDTIME diclofenac potassium 50 mg tablet 50 mg TID rosuvastatin 20 mg tablet 20 mg DAILY Discharge Orders: Discharge Order (Routine); Ordered 11/19/23 Ordered By: Murray Allen Diet: Advance to usual diet Activity on Discharge: As tolerated Stand Alone Forms: Patient Portal Discharge page Print Language: Greek Care Plan Goals: healing of infected thumb Health Concerns: infected thumb from injury Plan of Treatment: Take Doxycyline as recommended Soak finger in warm water with Peroxide 4 times a Assessment: see above
--- NOTE | 2023-11-18 07:59 | PM.PNORT ---
Subjective Subjective Date of Service: 11/18/23 Interval history: patient resting comfortably in bed performing warm water soaks reports overnight a small amount of purulent drainage began pain is managed no additional complaints Physical Exam Vital Signs: Vital Signs: Last Vital Signs Temp 97.2 F 11/18/23 07:03 Pulse 68 11/18/23 07:03 Resp 14 11/18/23 07:03 BP 128/61 11/18/23 07:03 Pulse Ox 96 11/18/23 07:03 O2 Del Method Room Air 11/18/23 07:03 BMI result Body Mass Index 37.2 Const: General: cooperative, healthy appearing and comfortable Extrem: Other: Right thumb redness and swelling over the IP joint with a small amount of purulent drainage. No pain over the MCP No pain along the thenar eminence No pain or swelling within the palmar aspect of the hand or web spaces No pain along the flexor tendons Procedures Date of Service Date of Service: 11/18/23 Progress Note: A&P Assessment and plan (1) Infected abrasion of right thumb: Status: Acute Assessment and Plan: continue warm water soaks continue abx no need for OR this am encourage gentle ROM (2) Tenosynovitis of thumb: Status: Acute Time Spent With Patient Time: Total time managing care of this patient today ____ minutes. Quality Stroke Does the patient have a stroke diagnosis?: No VTE Prior VTE?: No VTE Risk Level:: Medical - low VTE Device Contraindication: Treatment Not Indicated VTE Drug Contraindication: Treatment Not Indicated
[2023-11-18 14:16] LABS: Vancomycin Random 12.5 mcg/mL (15-20)
--- NOTE | 2023-11-18 14:25 | HE.PHANOTE ---
RE: VANCO DOSING Random came back as 12.5. Continue with dose of 1250 mg q8h, next random is scheduled for 11/18 @1400.
[2023-11-18 15:10] VITALS: BP 140/85; PULSE 89; RESP 20; TEMP 36.7; O2SAT 96
--- NOTE | 2023-11-18 15:15 | HO.PM.IMPN ---
Subjective Subjective Date of Service: 11/19/23 Interval History: f/u on cellulitis of right thumb interval history: redness and movement continue to improve Physical Exam Vital Signs: Vital Signs: Last Vital Signs Temp 97.2 F 11/18/23 07:03 Pulse 89 11/18/23 15:10 Resp 20 11/18/23 15:10 BP 140/85 H 11/18/23 15:10 Pulse Ox 96 11/18/23 15:10 O2 Del Method Room Air 11/18/23 15:10 BMI result Body Mass Index 37.2 Objective Data Active Medications Acetaminophen (Acetaminophen 325 Mg Tablet) 650 mg PO Q6H PRN PRN Reason: Pain, Mild (Pain Scale 1-3), fever or headache Last Admin: 11/16/23 21:58 Dose: 650 mg Documented By: LINDA Calcium Carbonate (Calcium Carbonate 750 Mg Tab.Chew) 750 mg PO Q4H PRN PRN Reason: Heartburn Gabapentin (Gabapentin 600 Mg Tablet) 600 mg PO BEDTIME [facility] Last Admin: 11/17/23 21:18 Dose: 600 mg Documented By: LINDA Vancomycin HCl 1,250 mg/ (Sodium Chloride) 250 mls @ 166.667 mls/hr IV Q8H [facility] Last Infusion: 11/18/23 08:46 Dose: Infused Documented By: GARY Ibuprofen (Ibuprofen 600 Mg Tablet) 600 mg PO Q8H PRN PRN Reason: Pain, Moderate(Pain Scale 4-6) Last Admin: 11/17/23 15:46 Dose: 600 mg Documented By: GARY Losartan Potassium (Losartan Potassium 50 Mg Tablet) 50 mg PO DAILY [facility]; Protocol Last Admin: 11/18/23 07:10 Dose: 50 mg Documented By: GARY Magnesium Hydroxide (Milk Of Magnesia 30 Ml Oral.Susp) 30 ml PO DAILY PRN PRN Reason: Constipation Melatonin (Melatonin 3 Mg Tablet) 6 mg PO BEDTIME PRN PRN Reason: Insomnia Morphine Sulfate (Morphine Sulfate 4 Mg/Ml Cartridge) 2 mg IVPUSH Q6H PRN; Protocol PRN Reason: Pain, Severe (Pain Scale 7-10) Pharmacy Consult (Consult Rx Vancomycin Dosing) 1 each MISCELLANE DAILY PRN PRN Reason: Consult order Sodium Chloride (0.9 % Sodium Chloride Flush 3 Ml Syringe) [facility] Last Admin: 11/18/23 07:14 Dose: 3 ml Documented By: GARY Labs 11/16/23 14:34 11/19/23 05:26 Labs: Laboratory Results - last 24 hr 11/18/23 11/18/23 06:03 13:45 Estim Creat Clear Calc 120.1 Estimated GFR > 60 Random Vancomycin 12.5 L Microbiology Microbiology Results: Microbiology 11/16/23 14:47 Blood Culture - Preliminary Blood - Venous No growth after 24 hours. 11/16/23 14:34 Blood Culture - Preliminary Blood - Venous No growth after 24 hours. Assessment and Plan (1) Infected abrasion of right thumb: Status: Acute (2) Tenosynovitis of thumb: Status: Acute Plan 53/m m with HTN, HLD here with Right tumb injury, redness, swelling..concern for tenosynovitis -IV vancomycin, change to PO Doxy at discharge -morphine for pain -Ortho recom IV Abx, warm soak w/ peroxide qid HTN--resume home meds (losartan) once med rec completed HLD--statin DVT prophylaxis--low risk, ambulate inatient for IV Abx for cellulitis of thumb, tenosynovitis, risk for loss digit Quality Stroke Does the patient have a stroke diagnosis?: No VTE Prior VTE?: No VTE Risk Level:: Medical - low VTE Device Contraindication: Treatment Not Indicated VTE Drug Contraindication: Treatment Not Indicated
[2023-11-18] MEDS: vancomycin HCL 1,250 MG in 0.9 % Sodium Chloride 250 ML 166.67 MG IV (15:46)
--- NOTE | 2023-11-18 15:47 | MHC.CM.PN ---
EMR reviewed and per MD rounds, pt is not medically cleared for discharge due to ongoing management of cellulitis, on IV abx.
[2023-11-18 18:59] VITALS: BP 155/74; PULSE 79; RESP 20; TEMP 36.4; O2SAT 96
[2023-11-18] MEDS: Gabapentin 600 MG TABLET PO (21:30)
[2023-11-19] MEDS: 0.9 % Sodium Chloride Flush 3 ML SYRINGE IVFLUSH ×2 (01:04→07:34)
[2023-11-19] MEDS: vancomycin HCL 1,250 MG in 0.9 % Sodium Chloride 250 ML 166.67 MG IV ×2 (01:04→07:32)
[2023-11-19 03:14] VITALS: BP 134/74; PULSE 76; RESP 16; TEMP 36.2; O2SAT 96
[2023-11-19 06:31] LABS: Creatinine Clr Calc Pharmacy 117.4; Estimated Glomerular Filt Rate > 60
[2023-11-19] MEDS: Losartan Potassium 50 MG TABLET PO (07:31)
[2023-11-19 07:42] VITALS: BP 123/72; PULSE 68; RESP 12; TEMP 36.4; O2SAT 97
--- NOTE | 2023-11-19 08:27 | PM.PNORT ---
Subjective Subjective Date of Service: 11/19/23 Interval history: Right thumb abscess performing warm water soaks pain is managed no additional complaints Physical Exam Vital Signs: Vital Signs: Last Vital Signs Temp 97.5 F 11/19/23 07:42 Pulse 68 11/19/23 07:42 Resp 12 11/19/23 07:42 BP 123/72 11/19/23 07:42 Pulse Ox 97 11/19/23 07:42 O2 Del Method Room Air 11/19/23 07:42 BMI result Body Mass Index 37.2 Const: General: cooperative, healthy appearing and comfortable Extrem: Other: Right thumb redness and swelling over the IP joint with a small amount of purulent drainage. No pain over the MCP No pain along the thenar eminence No pain or swelling within the palmar aspect of the hand or web spaces No pain along the flexor tendons Procedures Date of Service Date of Service: 11/19/23 Progress Note: A&P Assessment and plan (1) Infected abrasion of right thumb: Status: Acute Assessment and Plan: continue warm water soaks continue abx no need for OR this am encourage gentle ROM f/u ortho 1 week (2) Tenosynovitis of thumb: Status: Acute Time Spent With Patient Time: Total time managing care of this patient today ____ minutes. Quality Stroke Does the patient have a stroke diagnosis?: No VTE Prior VTE?: No VTE Risk Level:: Medical - low VTE Device Contraindication: Treatment Not Indicated VTE Drug Contraindication: Treatment Not Indicated
[2023-11-19] MEDS: Doxycycline Monohydrate 100 MG CAPSULE PO (09:26)
== END 2023-11-19 10:54 | disposition home or self-care (01) | DRG 351 ==
LOC: HO.ED 15:01 → HO.EDOVER 18:19 → HO.S3 19:58
PROVIDERS: Physician Assistant; Admitting Provider Internal Medicine; Emergency Provider Emergency Medicine; PCP Family Medicine; Visit Provider Internal Medicine
DX: M65.9 Synovitis and tenosynovitis, unspecified (principal); E78.5 Hyperlipidemia, unspecified; L03.012 Cellulitis of left finger; I10 Essential (primary) hypertension; Z79.899 Other long term (current) drug therapy
CPT/HCPCS: 36415; 73130; 80053; 80202; 82565; 83605; 85025; 85652; 86140; 87040; 90715; 99221; 99285; J0696; J2270; J3370; J3371

== ENCOUNTER → 2023-11-16 18:13 | Outpatient (BNV) | payer MEDICAID, SELFPAY | PROVIDERS: Admitting Provider Internal Medicine; Emergency Provider Emergency Medicine; PCP Family Medicine; Visit Provider Internal Medicine | DX: S60.311A Abrasion of right thumb, initial encounter (principal); L08.9 Local infection of the skin and subcutaneous tissue, unspecified; M65.9 Synovitis and tenosynovitis, unspecified | CPT/HCPCS: 99222; 99232; 99239 ==

== ENCOUNTER → 2023-11-16 18:13 | Outpatient (BNV) | payer MEDICAID, SELFPAY | PROVIDERS: Admitting Provider Internal Medicine; Emergency Provider Emergency Medicine; PCP Family Medicine; Visit Provider Physician Assistant | DX: S60.311A Abrasion of right thumb, initial encounter (principal); L08.9 Local infection of the skin and subcutaneous tissue, unspecified; M65.9 Synovitis and tenosynovitis, unspecified | CPT/HCPCS: 99222; 99231; 99232 ==

== ENCOUNTER 2024-02-15 14:16 | Outpatient (REF) | payer MEDICAID, SELFPAY ==
--- NOTE | ~2024-02-15 | XR_ITS ---
EXAMINATION: XR WRIST, LEFT CLINICAL INFORMATION: Pain in the left wrist COMPARISON: X-ray left wrist April 2021 TECHNIQUE: PA, lateral, and oblique views of the left wrist. FINDINGS: The bones and soft tissues are normal. No fracture. Alignment is anatomic with normal joint spaces. No erosions or abnormal soft tissue calcifications. Minimal ulnar variance. XR/XR wrist LT min 3V IMPRESSION: Normal left wrist. Electronically signed by: Trev Lanza MD 03/10/2024 07:12 AM EDT
== END 2024-02-15 14:17 | disposition home or self-care (01) ==
LOC: HO.XRAY 14:16
PROVIDERS: PCP Family Medicine; Visit Provider Physician Assistant
DX: M25.532 Pain in left wrist (principal)
CPT/HCPCS: 73110; 99212

== ENCOUNTER 2024-02-15 14:16 | Outpatient (AMB) | payer MEDICAID, SELFPAY ==
[2024-02-15 14:51] VITALS: BMI 37.2
--- NOTE | 2024-02-15 14:51 | A.OFFVIS_ITS ---
Vital Signs 02/15/24 14:51 Height 5 ft 8 in Weight 245 lb BMI 37.2 Intake Visit Reasons: New Prob-Left wrist pain Intake Note: Williams is a 54 year old male who presents today for a new problem visit for left wrist pain that began approx 4-5 months ago. Pain is located primarily at the CMC joint. Patient reports the pain is worse at night, therefore, he has been using a wrist brace and this is helpful. Denies numbness or tingling. Patient also reports morning stiffness, primarily on the left thumb. Patient is not taking anything for pain. He shares he had a work injury to the left wrist back in 2019 where he fell inside a shower. Allergies No Known Allergies Allergy (Verified 02/15/24 14:54) Medication List - Last Reconciled 02/15/24 by Lien Jennings PA-C diclofenac potassium 50 mg TID gabapentin 600 mg BEDTIME losartan 50 mg DAILY rosuvastatin 20 mg DAILY HPI HPI New Prob-Left wrist pain: Details: 54-year-old male who presents to the office today for an evaluation of left wrist pain for about 5 months. He states he has pain at the CMC joint that is aggravated at night. He also experiences stiffness in his wrist in the mornings, especially in his left thumb. He denies any numbness or tingling. He finds relief with using the wrist brace at night. He has a history of left wrist work injury in 2019 where he fell inside a shower. 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 No swelling. Mild tenderness over the radial styloid. Positive Mi?s. No pain with CMC grind.? is able to make a full fist and fully extend all digits. NVI. Results Reviewed Results Reviewed: xrays of the left wrist obtained on 02/14 are negative for acute fractures. He has mild cmc oa Assessment & Plan Assessment & Plan (1) De Quervain's tenosynovitis, left: Code(s): M65.4 - Radial styloid tenosynovitis [de Quervain] Category: Medical Plan We discussed options which include PT, NSAIDs and injections. Patient declined on physical therapy and opted for a Velcro thumb spica brace. If symptoms persist, she will contact me for an injection, otherwise, PRN. Orders: Orders XR wrist LT min 3V 02/15/24 M25.532 - Pain in left wrist Medications: New naproxen 500 mg PO BID 60 tabs 3RF 30 days Discontinued doxycycline hyclate Discontinued Reason: Patient no longer taking 100 mg PO BID 5 days 10 tabs 0RF Patient Instructions: Scribed for Lien Jennings PA-C, by Trell Gandara medical records supervisor, on 02/15/2024 at 2:30 PM EST.? I, Lien Jennings PA-C, have personally reviewed and agree with the information entered by the scribe. Coding Level of Care Code Est Pt Level 3 (17900) Complex EM visit Add On G2211 Diagnoses De Quervain's tenosynovitis, left M65.4
== END 2024-02-15 15:21 | disposition home or self-care (01) ==
PROVIDERS: PCP Family Medicine; Visit Provider Physician Assistant
DX: M65.4 Radial styloid tenosynovitis [de Quervain] (principal)
CPT/HCPCS: 99213